=== PATIENT | male | born 1975 | race Caucasian/White ===

== ENCOUNTER 2017-10-29 14:51 | Emergency (ER) | payer OTHER ==
[~2017-10-29] VITALS: Ht 182.9 cm; Wt 70.9 kg
[2017-10-29] MEDS ORDERED: BACTRIM,SEPT1 TABLET PO (16:40)
[2017-10-29 17:08] VITALS: BP 98/68
== END 2017-10-29 17:13 | disposition home or self-care (01) ==
LOC: EME 14:51
PROC: 0H9BXZZ Drainage of Right Upper Arm Skin, External Approach (ICD-10-PCS; principal; 2017-10-29)
DX: L02.413 Cutaneous abscess of right upper limb (principal); F17.200 Nicotine dependence, unspecified, uncomplicated
CPT/HCPCS: 99281; 99283

== ENCOUNTER 2018-01-13 17:42 | Emergency (ER) | payer OTHER ==
[~2018-01-13] VITALS: Ht 182.9 cm; Wt 70.7 kg
[~2018-01-13 17:42] MED LIST: BACTRIM,SEPT1 TABLET PO
[2018-01-13] MEDS ORDERED: SUBOXONE 12 MG1 EACH SL (20:27)
[2018-01-13 20:30] VITALS: BP 116/78
== END 2018-01-13 20:32 | disposition home or self-care (01) ==
LOC: EME 17:42
DX: F32.9 Major depressive disorder, single episode, unspecified (principal); F31.9 Bipolar disorder, unspecified; F60.9 Personality disorder, unspecified; F41.9 Anxiety disorder, unspecified; F17.200 Nicotine dependence, unspecified, uncomplicated; Z87.442 Personal history of urinary calculi
CPT/HCPCS: 90839; 99281; 99285